=== PATIENT | male | born 1985 | race Caucasian/White ===

== ENCOUNTER 2019-04-17 09:04 | Emergency (ER) | payer BC ==
--- NOTE | 2019-04-17 09:52 | EDM.PDOC ---
ED HPI GENERAL MEDICAL PROBLEM - General Chief Complaint: Eye Problems Stated Complaint: RIGHT EYE SWELLING Time Seen by Provider: 04/17/19 09:30 Source of Information: Reports: Patient History Limitations: Reports: No Limitations - History of Present Illness INITIAL COMMENTS - FREE TEXT/NARRATIVE: 34-year-old male presents emergency room with complaints of swelling and redness to the right eye. Upon waking up this morning he noticed some swelling and matting in the eye. He is not really having any pain or itching. No other complaints. No sinus congestion, no headaches, no earaches, no sore throat. Onset: Today Onset Date: 04/17/19 Duration: Hour(s): Location: Reports: Other (Right eye) Quality: Reports: Dull Severity: Mild Worsens with: Reports: None Context: Reports: Other (In a hot tub yesterday) Associated Symptoms: Reports: No Other Symptoms - Related Data Allergies Allergy/AdvReac Type Severity Reaction Status Date / Time No Known Allergies Allergy Verified 04/17/19 09:23 Home Meds: Home Meds . [No Known Home Meds] 04/17/19 [History] Past Medical History - Past Health History Medical/Surgical History: Denies Medical/Surgical History Social & Family History - Tobacco Use Smoking Status *Q: Never Smoker Second Hand Smoke Exposure: No - Caffeine Use Caffeine Use: Reports: Coffee - Recreational Drug Use Recreational Drug Use: No ED ROS GENERAL - Review of Systems Review Of Systems: ROS reveals no pertinent complaints other than HPI. ED EXAM GENERAL W FULL EYE - Physical Exam Exam: See Below Exam Limited By: No Limitations General Appearance: Alert, WD/WN, No Apparent Distress Eye Exam: Bilateral Eye: EOMI, PERRL Eyelids: Right: Edema, Left: Normal Appearance Conjunctiva & Sclera: Right: Injected, Left: Normal Appearance Extraocular Movements: Bilateral: Intact Pupils: Other (Equal) Pupillary Size: Bilateral: 3 mm Pupillary Reaction: Bilateral: Brisk Ears: Hearing Grossly Normal Throat/Mouth: Normal Voice Head: Atraumatic, Normocephalic Neck: Normal Inspection Respiratory/Chest: No Respiratory Distress, Lungs Clear, Normal Breath Sounds Cardiovascular: Normal Peripheral Pulses, Regular Rate, Rhythm, No Murmur Course - Vital Signs Last Recorded V/S: Last Vital Signs Temp 99.6 F 04/17/19 09:20 Pulse 73 04/17/19 09:20 Resp 16 04/17/19 09:20 BP 163/90 H 04/17/19 09:20 Pulse Ox 97 04/17/19 09:20 Departure - Departure Time of Disposition: 09:55 Disposition: Home, Self-Care 01 Condition: Good Clinical Impression: Conjunctivitis Qualifiers: Conjunctivitis type: acute Acute conjunctivitis type: bacterial Laterality: right Qualified Code(s): H10.31 - Unspecified acute conjunctivitis, right eye - Discharge Information Instructions: Bacterial Conjunctivitis Referrals: PCP,Unknown [Primary Care Provider] - Forms: ED Department Discharge - Assessment/Plan Assessment:: Conjunctivitis, pinkeye right Plan: 1. Ciprofloxacin ophthalmologic 1-2 drops every 4 hours for 4 days to the affected eye 2. Keep eye clean wipe away any matting with a warm cloth 3. May use warm compresses. 4. I'll up with primary care if not improving in 48 hours
== END 2019-04-17 09:55 | disposition home or self-care (01) ==
LOC: KA.ED 09:04
DX: H10.31 Unspecified acute conjunctivitis, right eye (principal)
CPT/HCPCS: 99283